=== PATIENT | male | born 1990 | race Caucasian/White ===

== ENCOUNTER 2016-11-23 02:11 | Emergency (ER) | payer MEDICAID ==
[~2016-11-23] VITALS: Ht 167.6 cm; Wt 82.0 kg
[2016-11-23 02:31] VITALS: Ht 167.6 cm; Wt 82.0 kg
[2016-11-23] MEDS ORDERED: morphine 4 MG/ML VIAL IV STA (02:36)
[2016-11-23] MEDS ORDERED: SOD CHLORIDE 0.9% 1,000 ML IV STA (02:36)
[2016-11-23] MEDS ORDERED: ONDANSETRON 4 MG INJ IV STA (02:36)
[2016-11-23 03:21] LABS: BASOPHILS % 0.3 % (0.0-2.0); EOSINOPHILS # 0.2 10^3/ul (0.0-0.5); EOSINOPHILS % 1.7 % (0.0-7.0); HEMATOCRIT 43.9 % (42.0-52.0); HEMOGLOBIN 15.1 g/dl (14.0-18.0); LYMPHOCYTES % 17.1 % (15.0-51.0); MEAN CORPUSCULAR HEMOGLOBIN 30.6 pg (29.0-33.0); MEAN CORPUSCULAR HGB CONC 34.4 g/dl (32.0-37.0); MEAN CORPUSCULAR VOLUME 88.9 fl (82.0-101.0); MEAN PLATELET VOLUME 9.8 fl (7.4-10.4); MONOCYTE # 0.8 10^3/ul (0.3-0.9); MONOCYTES % 7.1 % (0.0-11.0); NEUTROPHIL # 8.5 10^3/ul (1.6-7.5); NEUTROPHILS % 73.5 % (39.0-77.0); PLATELET COUNT 285 10^3/UL (140-415); RED BLOOD COUNT 4.94 10^6/ul (4.70-6.10); RED CELL DISTRIBUTION WIDTH 11.9 % (11.5-14.5); WHITE BLOOD COUNT 11.5 10^3/ul (4.8-10.8)
[2016-11-23] MEDS ORDERED: KETOROLAC 30 MG INJ IV STA (03:23)
[2016-11-23] MEDS ORDERED: HYDROmorphONE 1 MG/ML SYG IV STA (03:23)
--- NOTE | 2016-11-23 03:40 | RADRPT ---
PROCEDURE: CT ABDOMEN/PELVIS WITHOUT CONTRAST CLINICAL INDICATION: 26-year-old male with abdominal pain. TECHNIQUE: The study was performed utilizing a [employer] M[employer]ed VCT 64-slice CT scanner. Direct axia l sections were obtained through the abdomen and pelvis without the use of intravenous contrast mate rial. Sagittal and coronal reformations were obtained. One or more of the following dose reduction t echniques were utilized: automated exposure control, adjustment of the mA and/or kV according to pat ient's size or use of iterative reconstruction technique. The images were reviewed on a PACS workst [employer]. CTD/vol = 14.3 mGy; Total Exam DLP = 923 point a mGy-cm. COMPARISON: None. FINDINGS: The lung bases are unremarkable. There is no evidence for significant pleural effusion. The liver has a normal size and contour. There is diffuse decreased density throughout the liver consistent w ith fatty infiltration without focal areas of abnormal density. No intrahepatic nor extrahepatic isac iary ductal dilatation is seen. The gallbladder demonstrates no wall thickening nor pericholecystic fluid. No biliary stones are evident. The pancreas is without areas of abnormal attenuation. The sp aayush is identified and has a normal size without abnormal density. The adrenal glands are unremarkab le. There are a couple of punctate nonobstructing right upper and lower pole renal calculi. There i s mild left-sided hydroureteronephrosis with an obstructing calculus within the proximal left ureter measuring approximately 3 x 3 x 3 mm. There is a punctate nonobstructing left upper pole renal sneha ix calculus. The urinary bladder contains urine. There is no evidence for bowel obstruction. The appendix is visualized and is without abnormal thickening or surrounding inflammatory reaction. Ther e is no significant free fluid. The aortoiliac vessels are without aneurysmal dilatation. The osseou s structures are intact. IMPRESSION: 1. Mild left-sided hydroureteronephrosis with an obstructing proximal left ureteral 3 x 3 mm calcul us. 2. Punctate bilateral nonobstructing renal calculi. 3. No CT evidence for appendicitis. .Maulik Goode MD, Date Time Electronically viewed and signed by .Maulik Goode MD, on 11/23/2016 03:40 .Abbie
[2016-11-23 03:54] LABS: ADD UMIC YES; UR ASCORBIC ACID NEGATIVE (NEGATIVE); UR BACTERIA FEW /HPF (NONE SEEN); UR BILIRUBIN (Dip) NEGATIVE (NEGATIVE); UR BLOOD (Dip) 3+ mg/dL (NEGATIVE); UR CLARITY CLOUDY (CLEAR); UR COLOR YELLOW (YELLOW); UR GLUCOSE (Dip) NEGATIVE (NEGATIVE); UR KETONES (Dip) NEGATIVE (NEGATIVE); UR LEUKOCYTE ESTERASE (Dip) NEGATIVE Leu/ul (NEGATIVE); UR MUCUS FEW /HPF (NONE SEEN); UR NITRITE (Dip) NEGATIVE (NEGATIVE); UR RBC > 182 /HPF (0-5); UR SPECIFIC GRAVITY (Dip) 1.025 (1.003-1.030); UR SQUAMOUS EPITHELIAL CELL MANY /HPF (FEW); UR TOTAL PROTEIN (Dip) 1+ mg/dl (NEGATIVE); UR UROBILINOGEN (Dip) NEGATIVE (NEGATIVE)
[2016-11-23 03:59] LABS: ALBUMIN 4.5 g/dl (3.3-4.9); ALBUMIN/GLOBULIN RATIO 1.28; BILIRUBIN,INDIRECT 0.2 mg/dl (0-1.1); BILIRUBIN,TOTAL 0.2 mg/dl (0.2-1.3); CALCIUM 9.1 mg/dl (8.4-10.2); CREATININE 1.03 mg/dl (0.61-1.24)
[2016-11-23 05:17] VITALS: BP 106/52; PULSE 61; RESP 18
--- NOTE | 2016-11-23 05:22 | ERD ---
ER Documentation Chief Complaint Date/Time DATE: 11/23/16 TIME: 05:21 Chief Complaint L flank pain with nausea since 2100 HPI This is a 26-year-old male with left flank pain with nausea since 9 PM. No fevers no chills. No nausea no vomiting. Pain is mild to moderate intensity, colicky nature no exacerbating or alleviating factors. ROS All systems reviewed and are negative except as per history of present illness. Allergies Allergies: Coded Allergies: No Known Allergy (Unverified , 11/23/16) PMhx/Soc Medical and Surgical Hx: pt denies Medical Hx, pt denies Surgical Hx History of Surgery: No Anesthesia Reaction: No Hx Neurological Disorder: No Hx Respiratory Disorders: No Hx Cardiac Disorders: No Hx Psychiatric Problems: No Hx Miscellaneous Medical Probl: No Hx Alcohol Use: No Hx Substance Use: No Hx Tobacco Use: No Smoking Status: Never smoker Physical Exam Vitals Vital Signs Date Time Temp Pulse Resp B/P Pulse Ox O2 Delivery O2 Flow Rate FiO2 11/23/16 05:17 61 18 106/52 98 Room Air 11/23/16 02:31 98.6 83 18 154/104 98 Physical Exam Const: [] Head: Atraumatic Eyes: Normal Conjunctiva ENT: Normal External Ears, Nose and Mouth. Neck: Full range of motion..~ No meningismus. Resp: Clear to auscultation bilaterally Cardio: Regular rate and rhythm, no murmurs Abd: Soft, non tender, non distended. Normal bowel sounds Skin: No petechiae or rashes Back: No midline or flank tenderness Ext: No cyanosis, or edema Neur: Awake and alert Psych: Normal Mood and Affect Result Diagram: 11/23/16 0250 11/23/16 0250 Results 24 hrs Laboratory Tests Test 11/23/16 02:50 White Blood Count 11.510^3/ul Red Blood Count 4.9410^6/ul Hemoglobin 15.1g/dl Hematocrit 43.9% Mean Corpuscular Volume 88.9fl Mean Corpuscular Hemoglobin 30.6pg Mean Corpuscular Hemoglobin Concent 34.4g/dl Red Cell Distribution Width 11.9% Platelet Count 57755^3/UL Mean Platelet Volume 9.8fl Neutrophils % 73.5% Lymphocytes % 17.1% Monocytes % 7.1% Eosinophils % 1.7% Basophils % 0.3% Nucleated Red Blood Cells % 0.0/100WBC Neutrophils # 8.510^3/ul Lymphocytes # 2.010^3/ul Monocytes # 0.810^3/ul Eosinophils # 0.210^3/ul Basophils # 0.010^3/ul Nucleated Red Blood Cells # 0.010^3/ul Urine Color YELLOW Urine Clarity CLOUDY Urine pH 5.0 Urine Specific [place] 1.025 Urine Ketones NEGATIVEmg/dL Urine Nitrite NEGATIVEmg/dL Urine Bilirubin NEGATIVEmg/dL Urine Urobilinogen NEGATIVEmg/dL Urine Leukocyte Esterase NEGATIVELeu/ul Urine Microscopic RBC > 182/HPF Urine Microscopic WBC 8/HPF Urine Squamous Epithelial Cells MANY/HPF Urine Bacteria FEW/HPF Urine Mucus FEW/HPF Urine Hemoglobin 3+mg/dL Urine Glucose NEGATIVEmg/dL Urine Total Protein 1+mg/dl Sodium Level 146mmol/L Potassium Level 4.0mmol/L Chloride Level 104mmol/L Carbon Dioxide Level 24mmol/L Anion Gap 22 Blood Urea Nitrogen 11mg/dl Creatinine 1.03mg/dl Glucose Level 110mg/dl Calcium Level 9.1mg/dl Total Bilirubin 0.2mg/dl Direct Bilirubin 0.00mg/dl Indirect Bilirubin 0.2mg/dl Aspartate Amino Transf (AST/SGOT) 35IU/L Alanine Aminotransferase (ALT/SGPT) 58IU/L Alkaline Phosphatase 67IU/L Total Protein 8.0g/dl Albumin 4.5g/dl Globulin 3.50g/dl Albumin/Globulin Ratio 1.28 Lipase 110U/L Current Medications Medications (Trade) Dose Ordered Sig/Dao Route PRN Reason Start Time Stop Time Status Last Admin Dose Admin Sodium Chloride (NS) 1,000 ml @ 1,000 mls/hr Q1H STAT IV 11/23/16 02:36 11/23/16 03:35 DC 11/23/16 02:57 Morphine Sulfate (morphine) 4 mg ONCE STAT IV 11/23/16 02:36 11/23/16 02:38 DC 11/23/16 02:57 Ondansetron HCl (Zofran Inj) 4 mg ONCE STAT IV 11/23/16 02:36 11/23/16 02:38 DC 11/23/16 02:57 Hydromorphone HCl (Dilaudid) 1 mg ONCE STAT IV 11/23/16 03:23 11/23/16 03:31 DC 11/23/16 03:34 Ketorolac Tromethamine (Toradol) 30 mg ONCE STAT IV 11/23/16 03:23 11/23/16 03:31 DC 11/23/16 03:34 Procedures/MDM Medical decision-making: Patient comes in history and physical examination consistent with renal colic. CT scan confirmed this. At this point clinically stable. Patient will be discharged home with out from his primary care physician. Told to follow-up here in 8 hours Departure Diagnosis: Primary Impression: Flank pain Condition: Stable MARIAN GTZ Nov 23, 2016 05:22
[2016-11-23] MEDS ORDERED: TAMS-14 PO (05:29)
[2016-11-23] MEDS ORDERED: ONDA4TAB14 PO (05:29)
[2016-11-23] MEDS ORDERED: TRAM50TA2 PO (05:29)
== END 2016-11-23 05:50 | disposition home or self-care (01) ==
LOC: E/R 02:11
DX: R10.9 Unspecified abdominal pain (principal); R11.0 Nausea
CPT/HCPCS: 36415; 74176; 80053; 81001; 83690; 85025; 96374; 96375; J1170; J1885; J2270; J2405; J7030; Z7502